=== PATIENT | female | born 2000 | race American Indian/Alaskan Native ===

== ENCOUNTER 2022-05-03 11:57 | Emergency (ER) | payer MEDICAID ==
[2022-05-03] MEDS ORDERED: SODIUM CHLORIDE 0.9% 1000 ML 1,000 ML IV ONE (12:34)
--- NOTE | 2022-05-03 12:45 | Emergency Department Report ---
ED Palpitations HPI - General Chief Complaint: Arrhythmia/Palpitations Stated Complaint: HEART PALPITATIONS Time Seen by Provider: 05/03/22 12:32 Source: EMS Mode of arrival: Stretcher Limitations: No Limitations - History of Present Illness Initial Comments: 21 yo F at 32 weeks gestation brought in by EMS with palpitation that started after she had an intense argument with her mother this morning. According to EMS patient's heart goes between 125 and 170 bpm and was given Adenosine 6 mg IV x 1 and then repeated 12 mg IV x 2 with no immediate response. Pt presented to the ED with heart rate at 123 bpm. She however denies any CP, or SOB. She is noted to be crying and shedding tears. She also mentioned that she has not had the baby move since the argument. No other modifying or associated factors reported. - Related Data Allergies Allergy/AdvReac Type Severity Reaction Status Date / Time No Known Allergies Allergy Unverified 05/03/22 14:03 ED Review of Systems ROS: Stated complaint: HEART PALPITATIONS Other details as noted in HPI Comment: All other systems reviewed and negative Respiratory: denies: shortness of breath, wheezing Cardiovascular: palpitations. denies: chest pain, syncope ED Physical Exam - General Limitations: No Limitations General appearance: alert, in no apparent distress, anxious - Head Head exam: Present: atraumatic, normal inspection - Eye Eye exam: Present: normal appearance Pupils: Present: normal accommodation - ENT ENT exam: Present: normal exam, normal orophraynx, mucous membranes moist - Neck Neck exam: Present: normal inspection. Absent: tenderness, full ROM - Respiratory Respiratory exam: Present: normal lung sounds bilaterally. Absent: respiratory distress, accessory muscle use - Cardiovascular Cardiovascular Exam: Present: tachycardia, other (sinus tachycardia ) - GI/Abdominal GI/Abdominal exam: Present: soft, normal bowel sounds, other (gravidal 32 cm ) - Extremities Exam Extremities exam: Present: normal inspection, full ROM, normal capillary refill. Absent: pedal edema - Back Exam Back exam: Absent: tenderness - Neurological Exam Neurological exam: Present: alert, oriented X3 - Psychiatric Psychiatric exam: Present: anxious, other (crying ) - Skin Skin exam: Present: warm, normal color ED Course Vital Signs 05/03/22 05/03/22 05/03/22 12:02 12:05 12:16 Pulse Rate 144 H 176 H 138 H Respiratory 11 L 19 13 Rate Blood Pressure 132/67 Blood Pressure 139/79 [Left] O2 Sat by Pulse 100 100 98 Oximetry 05/03/22 05/03/22 05/03/22 12:30 12:45 13:00 Pulse Rate 117 H 115 H 113 H Respiratory 15 17 13 Rate Blood Pressure 133/79 123/74 123/74 Blood Pressure [Left] O2 Sat by Pulse 97 96 96 Oximetry 05/03/22 05/03/22 05/03/22 13:16 13:30 13:46 Pulse Rate 141 H 122 H 125 H Respiratory 21 22 20 Rate Blood Pressure 116/63 132/70 132/70 Blood Pressure [Left] O2 Sat by Pulse 98 98 97 Oximetry 05/03/22 05/03/22 05/03/22 14:00 14:05 14:16 Pulse Rate 109 H 108 H 109 H Respiratory 15 18 23 Rate Blood Pressure 120/72 130/68 Blood Pressure 106/68 [Left] O2 Sat by Pulse 98 98 95 Oximetry 05/03/22 05/03/22 05/03/22 14:30 14:46 15:00 Pulse Rate 119 H 126 H 102 H Respiratory 22 20 22 Rate Blood Pressure 139/58 139/58 142/61 Blood Pressure [Left] O2 Sat by Pulse 98 99 99 Oximetry 05/03/22 05/03/22 05/03/22 15:16 15:30 15:46 Pulse Rate 106 H 107 H 104 H Respiratory 15 15 21 Rate Blood Pressure 126/68 126/68 126/68 Blood Pressure [Left] O2 Sat by Pulse 99 99 98 Oximetry 05/03/22 05/03/22 05/03/22 16:00 16:16 16:30 Pulse Rate 95 H 107 H 105 H Respiratory 17 19 25 H Rate Blood Pressure 120/81 120/81 120/81 Blood Pressure [Left] O2 Sat by Pulse 97 99 99 Oximetry 05/03/22 05/03/22 05/03/22 16:46 17:00 17:16 Pulse Rate 101 H 104 H 103 H Respiratory 14 24 21 Rate Blood Pressure 120/81 131/77 131/77 Blood Pressure [Left] O2 Sat by Pulse 97 97 96 Oximetry 05/03/22 05/03/22 05/03/22 17:30 17:46 18:00 Pulse Rate 112 H 114 H 112 H Respiratory 16 12 19 Rate Blood Pressure 131/77 131/77 93/47 Blood Pressure [Left] O2 Sat by Pulse 99 99 99 Oximetry - Reevaluation(s) Reevaluation #1: 05/03/22 12:47 here with suspected SVT but noted to be in sinus tachycardia -- with noted crying with emotion-- this is likely the cause of her palpitation but could not rule out organic cause so will order routine labs including thyroid profiles-- in the meantime will order ivf ns 1L bolus x 1 for hydration Reevaluation #2: 05/03/22 17:52 Noted with low H&H 9.5/30.1 which is consistent with her stage of . She is also noted with wbc 14.5 with no left shift, which likely is state related and non infectious. Baby heart rate doppler to be 150 bpm Reevaluation #3: 05/03/22 17:54 I called and spoke with Dr Jacobs since i was told that the L&D could not be reached for baby NSE--who advise to either have patient discharge from the ER to L&D or other baby biophysical profile-- I discuss this with the patient and family they wanted to be discharge to L&D so she was cleared and discharged to L&D. ED Medical Decision Making - Lab Data Result diagrams: 05/03/22 13:11 05/03/22 13:11 - EKG Data -: EKG Interpreted by Me EKG shows normal: sinus rhythm Rate: tachycardia - EKG Data 05/03/22 18:15 Noted with sinus tachycardia at a rate of [address] elevation or depression in this otherwise normal ECG. Critical care attestation.: If time is entered above; I have spent that time in minutes in the direct care of this critically ill patient, excluding procedure time. ED Disposition Clinical Impression: Anxiety, Palpitations, Anemia affecting in third trimester, Regular sinus tachycardia Qualifiers: Weeks of gestation: 32 weeks Qualified Code(s): Z3A.32 - 32 weeks gestation of Disposition: 01 HOME / SELF CARE / HOMELESS Is pt being admited?: No Does the pt Need Aspirin: No Condition: Stable Instructions: Third Trimester of , [id number], Palpitations, [id number] Additional Instructions: It very important that you go directly to Labor and Delivery after your discharge from the Emergency Room so your baby can be monitor due to some of the medication that you are been treated with by the EMS that could potentially after your . Increase your daily fluid to help your hydration Call or return to ED if your symptoms worsen Time of Disposition: 18:14
[2022-05-03 14:58] LABS: Basophils % (Auto) 0.2 % (0.0-1.8); Eosinophils % (Auto) 0.1 % (0.0-4.3); Hematocrit 30.1 % (30.3-42.9); Hemoglobin 9.5 gm/dl (10.1-14.3); Lymphocytes # (Auto) 1.4 K/mm3 (1.2-5.4); Lymphocytes % (Auto) 9.5 % (13.4-35.0); Mean Corpuscular HGB Conc 32 % (30-34); Mean Corpuscular Volume 82 fl (79-97); Monocytes # (Auto) 0.9 K/mm3 (0.0-0.8); Monocytes % (Auto) 6.3 % (0.0-7.3); Platelet Count 295 K/mm3 (140-440); Red Blood Count 3.68 M/mm3 (3.65-5.03); Red Cell Distribution Width 15.8 % (13.2-15.2)
[2022-05-03 15:00] LABS: Bilirubin,Urine NEG (Negative); Blood,Urine NEG (Negative); Color,Urine Yellow (Yellow); Urobilinogen,Urine < 2.0 mg/dL (<2.0)
[2022-05-03 15:01] LABS: RBC,Urine < 1.0 /HPF (0.0-6.0); WBC,Urine < 1.0 /HPF (0.0-6.0)
[2022-05-03 15:10] LABS: Amphetamine Screen,Urine Negative; Bacteria,Urine 1+ /HPF (Negative); Benzodiazepines Screen,Urine Negative; Cannabinoid Screen,Urine Negative; Cocaine Screen,Urine Negative; Methadone Screen,Urine Negative; Mucus,Urine FEW /HPF; Opiate Screen,Urine Negative
[2022-05-03 15:17] LABS: INR 0.98 (0.87-1.13)
[2022-05-03 15:18] LABS: Partial Thromboplastin Time 29.7 Sec. (24.2-36.6)
[2022-05-03 15:24] LABS: Alanine Aminotransferase 6 units/L (7-56); Albumin 3.9 g/dL (3.9-5); Blood Urea Nitrogen 4 mg/dL (7-17); Calcium 9.3 mg/dL (8.4-10.2); Hemolysis Index 0
[2022-05-03 15:42] LABS: BUN/Creatinine Ratio 8
[2022-05-03 18:08] VITALS: BP 93/47
--- NOTE | 2022-05-04 11:22 | Electrocardiograph Report ---
[facility] Test Date: 2022-05-03 Test Time: 13:41:33 Pat Name: MONIKA ORTEGA Department: Room: Gender: F [employer] Supervisor: [birth year] : 2000 Requested By: ROXANA ESCOTO Order Number: [id number] Reading MD: Gael Kee Measurements Intervals [place] Rate: 100 P: 66 [place]: 130 QRS: 47 QRSD: 76 T: 20 QT: 329 QTc: 426 Interpretive Statements Sinus tachycardia No previous ECG available for comparison Electronically Signed On 05-04-2022 11:21:37 EDT by Gael Kee
== END 2022-05-03 18:49 | disposition home or self-care (01) ==
LOC: ED 11:57
DX: O99.013 Anemia complicating pregnancy, third trimester (principal); D64.9 Anemia, unspecified; Z3A.32 32 weeks gestation of pregnancy; F41.9 Anxiety disorder, unspecified; R00.0 Tachycardia, unspecified; Z79.899 Other long term (current) drug therapy
CPT/HCPCS: 36415; 80053; 80307; 81001; 84484; 85025; 85610; 85730; 93005; 96360; 99284; J7030

== ENCOUNTER 2022-05-03 18:52 | Outpatient (CLI) | payer MEDICAID ==
[2022-05-03 21:00] VITALS: BP 147/80
[2022-05-04] MEDS ORDERED: LACTATED RINGERS 500 ML IV ONE (03:13)
== END 2022-05-03 21:15 | disposition home or self-care (01) ==
LOC: TRG 18:52 → APU 19:26 → TRG 23:00
PROVIDERS: ATTEND Obstetrics & Gynecology
DX: Z34.93 Encounter for supervision of normal pregnancy, unspecified, third trimester (principal); Z3A.32 32 weeks gestation of pregnancy
CPT/HCPCS: 59025